=== PATIENT | female | born 1990 | race Caucasian/White ===

== ENCOUNTER 2022-06-09 14:32 | Emergency (ER) | payer SELFPAY ==
[~2022-06-09] VITALS: Ht 165.1 cm; Wt 63.5 kg
[2022-06-09] MEDS ORDERED: HYDR1TAB94 PO (15:39)
[2022-06-09 16:05] VITALS: BP 109/78
== END 2022-06-09 16:06 | disposition home or self-care (01) ==
LOC: ER 14:32
DX: S83.014A Lateral dislocation of right patella, initial encounter (principal); X50.1XXA Overexertion from prolonged static or awkward postures, initial encounter
CPT/HCPCS: 27560; 73562-RT; 96374-59; 96375-59; 99283-25; J1170; J2405

== ENCOUNTER 2024-02-03 08:22 | Day surgery (SDC) | payer OTHER ==
[~2024-02-03] VITALS: Ht 154.9 cm; Wt 63.4 kg
[~2024-02-03 08:22] MED LIST: HYDR1TAB94 PO
[2024-02-03] MEDS ORDERED: NS 50 ML IV ONE (08:37)
[2024-02-03] MEDS ORDERED: Lactated Ringer's 1,000 ML IV ONE ×2 (08:37→08:55)
[2024-02-03] MEDS ORDERED: CeFAZolin Sodium 2,000 MG VIAL ONE (08:37)
[2024-02-03] MEDS ORDERED: BIRTHCONTROL (08:45)
[2024-02-03] MEDS ORDERED: PRENATAL TABLE1 EAC2 PO (08:45)
--- NOTE | 2024-02-03 08:56 | NUR ---
02/03/24 [id number] Lana Barakat IN ROOM WITH PT
[2024-02-03] MEDS ORDERED: Acetaminophen 500 MG Tab ONE (09:12)
[2024-02-03] MEDS ORDERED: FentaNYL Citrate 50 MCG/ML 2 ML Injection ONE (09:18)
[2024-02-03] MEDS ORDERED: propofoL 20 ML IV ONE (09:18)
[2024-02-03] MEDS ORDERED: Metoclopramide HCl 5MG / ML 2ML Vial ONE (09:52)
[2024-02-03] MEDS ORDERED: Ondansetron HCl 2 MG / ML 2ML Vial ONE (09:52)
[2024-02-03] MEDS ORDERED: Bupivacaine 0.5% W/EPI 1:200000 SDV 30ML XX ONE ×2 (09:53)
[2024-02-03 11:24] VITALS: BP 100/69
== END 2024-02-03 11:15 | disposition home or self-care (01) ==
LOC: ORSCSDS 08:22
PROVIDERS: Obstetrics & Gynecology
PROC: 0UBC7ZX Excision of Cervix, Via Natural or Artificial Opening, Diagnostic (ICD-10-PCS; principal; 2024-02-03 10:00)
DX: D06.0 Carcinoma in situ of endocervix (principal)
CPT/HCPCS: 88305; A9270; J0690; J2405; J2704; J2765; J3010; J7120